=== PATIENT | female | born 1995 | race Caucasian/White ===

== ENCOUNTER 2016-10-05 17:11 | Emergency (ER) | payer BC ==
[~2016-10-05] VITALS: Ht 162.6 cm; Wt 52.0 kg
[2016-10-05 17:47] LABS: BILIRUBIN,URINE Negative (Negative); CLARITY,URINE Cloudy; GLUCOSE, URINE (UA) Negative (Negative); LEUKOCYTE ESTERASE ,URINE Negative (Negative); PH,URINE 5.5 (5.0 - 8.0); UROBILINOGEN,URINE 0.2 mg/dL (0.2-1.0)
[2016-10-05 17:50] LABS: BASOPHILS % (AUTO) 0 % (0-2); EOSINOPHILS % (AUTO) 0 % (0-4); LYMPHOCYTES # (AUTO) 1.8 X10^3; MEAN CORPUSCULAR HEMOGLOBIN 29.2 PG (26.0-34.0); MEAN CORPUSCULAR HGB CONC 34.7 g/dL (31.0-37.0); MEAN CORPUSCULAR VOLUME 84 FL (80-100); MEAN PLATELET VOLUME 11.6 FL (6.0-9.5); MONOCYTES # (AUTO) 0.7 X10^3; MONOCYTES % (AUTO) 11 % (3-11); NEUTROPHILS # (AUTO) 3.7 X10^3; NEUTROPHILS % (AUTO) 60 % (51-67); PLATELET COUNT 269 10^3uL (150-450); WHITE BLOOD COUNT 6.21 10^3uL (4.0-11.0)
[2016-10-05 17:55] LABS: COLOR,URINE Dark Yellow; URINE CENTRIFUGED VOLUME 12 mL
[2016-10-05 17:56] LABS: AMPHETAMINE SCREEN, URINE Negative (Negative); CANNABINOID SCREEN, URINE Positive (Negative); METHAMPHETAMINE SCREEN URINE S NEGATIVE (NEGATIVE); OPIATE SCREEN URINE Negative (Negative); PROPOXYPHENE STAT NEGATIVE (NEGATIVE)
[2016-10-05 18:01] LABS: ALBUMIN 4.7 g/dL (3.4-5.0); ALKALINE PHOSPHATASE 49 U/L (38-126); BUN/CREATININE RATIO 14 (10-20); CALCULATED IONIZED CALCIUM 3.9 mg/dL (3.8-4.6); TOTAL PROTEIN 7.7 g/dL (6.4-8.5)
[2016-10-05] MEDS ORDERED: FERR325T36 PO (18:11)
--- NOTE | 2016-10-05 18:46 | Diagnostic Imaging Report ---
INDICATION: Seizures. COMPARISON STUDIES: None. FINDINGS: There is no mass effect, midline shift, hemorrhage or extra-axial fluid collections. Diaz-white matter differentiation is normal. The ventricles, cortical sulci and basilar cisterns appear normal. No fluid is seen in the mastoid air cells or the visualized portions of the paranasal sinuses. There is normal ossification. IMPRESSION: Normal CT scan of the head. Dictated by: Dictated on workstation # [id number]
--- NOTE | 2016-10-05 18:58 | NUR ---
Pt resting in no acute distress. IV infusing well. Pt report given to TATI Carmichael No seizure activity noted while in the ED.
[2016-10-05 19:38] VITALS: BP 108/70
== END 2016-10-05 19:40 | disposition home or self-care (01) ==
LOC: ED 17:13
DX: G40.89 Other seizures (principal)
CPT/HCPCS: 36415; 70450; 80053; 80307; 80320; 81003; 81015; 84703; 85025; 96360; 99283; J7030

== ENCOUNTER → 2016-10-05 | Outpatient (CLI) | payer BC ==
[~2016-10-05] MED LIST: FERR325T36 PO
== END ==
LOC: EMS 16:55
PROVIDERS: ATTEND Emergency Medicine
DX: R41.0 Disorientation, unspecified (principal); R56.9 Unspecified convulsions